=== PATIENT | male | born 1970 | race Two or more races ===

== ENCOUNTER 2022-10-02 15:11 | Emergency (ER) | payer MEDICAID ==
[~2022-10-02] VITALS: Ht 167.6 cm; Wt 67.1 kg
[2022-10-02 15:17] VITALS: BP 132/80
--- NOTE | 2022-10-02 15:20 | NUR ---
BIBS FOR C/O RIGHT SIDED FACIAL PAIN X 3 DAYS. RATES PAIN 6/10. WILL CONTINUE TO MONITOR THE PATIENT.
[2022-10-02 16:31] LABS: BASOPHILS % (AUTO) 0.4 % (0.0-2.0); EOSINOPHILS % (AUTO) 2.5 % (0.0-6.0); HEMATOCRIT 44 % (39-51); HEMOGLOBIN 14.9 g/dL (13.5-17.5); LYMPHOCYTES # (AUTO) 1.9 K/uL (0.8-4.8); LYMPHOCYTES % (AUTO) 31.5 % (20.0-44.0); MEAN CORPUSCULAR HGB CONC 34 g/dl (31.0-36.0); MEAN CORPUSCULAR VOLUME 104 fL (80-96); MONOCYTES # (AUTO) 0.8 K/uL (0.1-1.30); MONOCYTES % (AUTO) 13.1 % (2.0-12.0); NEUTROPHILS # (AUTO) 3.2 K/uL (1.8-8.9); NEUTROPHILS % (AUTO) 52.5 % (43.0-81.0); PLATELET COUNT (AUTO) 242 K/uL (150-450); RED BLOOD CELL COUNT(AUTO) 4.27 MIL/uL (4.5-6.0); WHITE BLOOD COUNT (AUTO) 6.1 K/uL (4.3-11.0)
[2022-10-02 16:35] LABS: CALCIUM, SERUM 8.7 mg/dL (8.5-10.1); CREATININE 0.8 mg/dL (0.6-1.3); POTASSIUM 4.1 mmol/L (3.5-5.1)
[2022-10-02] MEDS ORDERED: IOHEXOL-300 100 ML VIAL IV ONE (16:46)
[2022-10-02] MEDS ORDERED: IV NS 0.9% 250 ML IV ONE (16:46)
[2022-10-02] MEDS ORDERED: CLIN300C12 PO (18:33)
--- NOTE | 2022-10-02 19:08 | NUR ---
Patient discharged to home in stable condition. Written and verbal after care instructions given. Patient verbalizes understanding of instruction.
[2022-10-02 21:51] LABS: BAND % (MANUAL) 1 % (0.0-5.0); EOSINOPHILS % (MANUAL) 3 % (0-4); LYMPHOCYTES % (MANUAL) 19 % (16-48); MONOCYTES % (MANUAL) 11 % (0-11.0); NEUTROPHILS % (MANUAL) 63 (42-76); REACTIVE LYMPHOCYTES 3 % (0-0)
== END 2022-10-02 19:07 | disposition home or self-care (01) ==
LOC: ER 15:22
DX: K12.2 Cellulitis and abscess of mouth (principal); R59.0 Localized enlarged lymph nodes; Z79.899 Other long term (current) drug therapy
CPT/HCPCS: 99285; 70487; 85025; 80048; 36415; 85007; J7050; Q9967